=== PATIENT | male | born 1990 | race Caucasian/White ===

== ENCOUNTER 2022-01-01 09:50 | Emergency (ER) | payer BC ==
[2022-01-01 10:03] VITALS: BP 119/58
--- NOTE | 2022-01-01 10:47 | ED Physician Documentation ---
PD HPI UPPER EXT INJURY - Stated complaint Stated Complaint: L PINKY INJ - Chief complaint Chief Complaint: Laceration - History obtained from History obtained from: Patient - History of Present Illness Location: Left, Finger (little finger crushed at tip with) Type of injury: Crush (caught in trailer hitch while connecting it. Pinched tip of finger. Concern about fracture, and also has cut on tip. Nailbed not disrupted.) Timing - onset: How many hours ago (1), Today Timing - details: Abrupt onset, Still present Worsened by: Moving, Palpating Associated symptoms: No: Weakness, Numbness Similar symptoms before: Has not had sx before Review of Systems Skin: reports: Abrasion (s) (dorsal proximal to nailbed.), Laceration (s) Neurologic: denies: Focal weakness, Numbness PD PAST MEDICAL HISTORY - Past Medical History Past Medical History: No - Past Surgical History Past Surgical History: No - Allergies Allergies/Adverse Reactions: Allergies Allergy/AdvReac Type Severity Reaction Status Date / Time No Known Drug Allergies Allergy Verified 01/01/22 09:58 - Social History Does the pt smoke?: No Smoking Status: Never smoker Does the pt drink ETOH?: Yes Does the pt have substance abuse?: No - Immunizations Immunizations are current?: Yes PD ED PE NORMAL - Vitals Vital signs reviewed: Yes - General General: Alert and oriented X 3, No acute distress, Well developed/nourished - Derm Derm: Normal color, Warm and dry - Extremities Extremities: Other (left little finger with stellate lac on tip of fat pad. No FB. Not bleeding now. Dorsal prox to nailbed with abrasion/supervicial avulsion. ) - Neuro Neuro: Alert and oriented X 3, No motor deficit (able to flex and extend though hurts, so hard to assess full strength. ), No sensory deficit, Normal speech Results - Vitals Vitals: Oxygen O2 Source Room air - Rads (name of study) left little finger Radiology: Prelim report reviewed (no fractures nor FBs. ), See rad report PD MEDICAL DECISION MAKING - ED course Complexity details: reviewed results, considered differential (no fractures. lac is small and treated with steri strips after cleasning with tap water. ), d/w patient Departure - Departure Disposition: 01 Home, Self Care Clinical Impression: Crushing injury of little finger Finger laceration Qualifiers: Encounter type: initial encounter Finger: little finger Damage to nail status: without damage Foreign body presence: without foreign body Laterality: left Qualified Code(s): S61.217A - Laceration without foreign body of left little finger without damage to nail, initial encounter Condition: Stable Record reviewed to determine appropriate education?: Yes Follow-Up: [facility] [Provider Group] Comments: Keep the area clean and dry. He can apply little ointment to the abrasion on the back of the finger. Otherwise allow the glue and Steri-Strips to fall off on their own over several days. Gentle use of the finger over the next few days. This should give time for the wound to heal up well enough to start doing more regular use and treat with typical Band-Aids etc. Recheck if signs of infection. Tylenol or ibuprofen as needed for pains. Discharge Date/Time: 01/01/22 11:27
--- NOTE | 2022-01-01 11:03 | XRAY Report ---
PROCEDURE: Finger(s) LT INDICATIONS: Trauma TECHNIQUE: AP hand, 2 views of the fifth finger(s) acquired. COMPARISON: None FINDINGS: Bones: No fractures or dislocations. No suspicious bony lesions. Soft tissues: No suspicious soft tissue calcifications. IMPRESSION: No displaced fractures are seen. Reviewed by: Andrsé Davis MD on 01/01/2022 10:02 AM ANA LUISA Approved by: Andrés Davis MD on 01/01/2022 10:02 AM ANA LUISA Station ID: [id number]
== END 2022-01-01 11:27 | disposition home or self-care (01) ==
LOC: ED 09:50
DX: S61.217A Laceration without foreign body of left little finger without damage to nail, initial encounter (principal); W23.1XXA Caught, crushed, jammed, or pinched between stationary objects, initial encounter
CPT/HCPCS: 99282; 99283

== ENCOUNTER 2022-10-21 08:00 | Outpatient (CLI) | payer BC | END 2022-10-21 23:59 | disposition home or self-care (01) | LOC: LAB.N 08:00 | PROVIDERS: ATTEND Physician Assistant Medical | DX: R76.11 Nonspecific reaction to tuberculin skin test without active tuberculosis (principal) | CPT/HCPCS: 81599; 86480 ==

== ENCOUNTER 2022-10-21 12:52 | Outpatient (CLI) | payer BC ==
--- NOTE | 2022-10-21 14:02 | XRAY Report ---
PROCEDURE: Chest 2 View X-Ray INDICATIONS: TB SKIN TEST POSITIVE TECHNIQUE: 2 views of the chest were acquired. COMPARISON: CXR 01/19/2012. FINDINGS: Surgical changes and devices: None. Lungs and pleura: No pleural effusions or pneumothorax. Lungs are clear. Mediastinum: Mediastinal contours appear normal. No adenopathy is seen. Heart size is normal. Bones and chest wall: No suspicious bony lesions. Overlying soft tissues appear unremarkable. IMPRESSION: No acute cardiopulmonary process. No interval change appreciated. Reviewed by: Everardo Perdomo MD on 10/21/2022 2:00 PM PDT Approved by: Everardo Perdomo MD on 10/21/2022 2:00 PM PDT Station ID: [id number]
== END 2022-10-21 23:59 | disposition home or self-care (01) ==
LOC: DI.N 12:52
PROVIDERS: ATTEND Physician Assistant Medical
DX: R76.11 Nonspecific reaction to tuberculin skin test without active tuberculosis (principal)